=== PATIENT | female | born 1965 | race Caucasian/White ===

== ENCOUNTER 2021-12-21 10:24 | Emergency (ER) | payer OTHER ==
[2021-12-21 10:33] VITALS: BP 124/79; PULSE 66; TEMP 98.5; BMI 32.9
[2021-12-21] MEDS ORDERED: ACETAMINOPHEN 500 MG TABLET (FP) PO ONE (10:52)
[2021-12-21] MEDS ORDERED: ACETAMINOPHEN 325 MG TABLET (FP) ONE (10:56)
== END 2021-12-21 11:36 | disposition home or self-care (01) ==
LOC: FER 10:24
DX: M79.671 Pain in right foot (principal)
CPT/HCPCS: 73610-TC-RT-FY; 73630-TC-RT-FY; 99283-25